=== PATIENT | male | born 1990 | race Caucasian/White ===

== ENCOUNTER → 2022-04-20 | Outpatient (REF) ==
--- NOTE | 2022-04-20 15:02 | Diagnostic Imaging Report ---
EXAMINATION: Right shoulder MRI without contrast, 04/20/2022. TECHNIQUE: Multiplanar, multisequence non contrast-enhanced MRI of the right upper extremity was accomplished. INDICATION: Pulling injury. Occurred in October 2021. Shoulder pain since. FINDINGS: The supraspinatus and infraspinatus tendons appear intact. The subscapularis tendon is intact. The long head of the biceps tendon is intact and lies within the bicipital groove. The biceps tendon anchor is intact. The labrum is grossly intact on this noncontrast examination. There is minimal narrowing and spurring at the acromioclavicular joint. There is minimal underlying fluid in the subdeltoid-subacromial bursa. Muscle volume is preserved. IMPRESSION: 1. Minimal fluid in the subdeltoid-subacromial bursa suggesting mild changes of bursitis. 2. Rotator cuff and labrum as well as biceps tendon intact. Dictated by: Dictated on workstation # [id number]
== END | disposition home or self-care (01) ==
LOC: OCC 13:08
PROVIDERS: ATTEND Family Medicine
DX: Z01.818 Encounter for other preprocedural examination (principal)
CPT/HCPCS: 73221

== ENCOUNTER → 2022-05-16 | Outpatient (CLI) | payer OTHER ==
--- NOTE | 2022-05-16 10:59 | Diagnostic Imaging Report ---
INDICATION: Shoulder pain EXAMINATION: Right shoulder 05/16/2022 FINDINGS: 3 views of the shoulder. FINDINGS: There is no evidence for an acute fracture or dislocation. The joint spaces are well maintained. There is no significant soft tissue swelling. IMPRESSION: No acute process. Dictated by: Dictated on workstation # [id number]
== END ==
LOC: ORTHO 09:52
PROVIDERS: ATTEND Orthopaedic Surgery
DX: M75.51 Bursitis of right shoulder (principal)
CPT/HCPCS: 73030; G0463; 99203

== ENCOUNTER 2022-06-08 09:40 | Outpatient (RCR) | payer OTHER | END 2022-06-11 | disposition home or self-care (01) | PROVIDERS: ATTEND Orthopaedic Surgery | DX: M75.51 Bursitis of right shoulder (principal) ==

== ENCOUNTER → 2022-06-16 | Outpatient (CLI) | payer OTHER | LOC: ORTHO 11:08 | PROVIDERS: ATTEND Orthopaedic Surgery | DX: M75.51 Bursitis of right shoulder (principal) ==

== ENCOUNTER 2022-07-11 08:33 | Outpatient (RCR) | payer OTHER | END 2022-07-12 | disposition home or self-care (01) | PROVIDERS: ATTEND Orthopaedic Surgery | DX: M75.51 Bursitis of right shoulder (principal) ==

== ENCOUNTER → 2022-07-18 | Outpatient (CLI) | payer OTHER | LOC: ORTHO 17:17 | PROVIDERS: ATTEND Orthopaedic Surgery | DX: M75.51 Bursitis of right shoulder (principal) | CPT/HCPCS: 99213 ==

== ENCOUNTER 2022-08-01 08:47 | Outpatient (RCR) | payer OTHER | END 2022-08-11 | disposition home or self-care (01) | PROVIDERS: ATTEND Orthopaedic Surgery | DX: M75.51 Bursitis of right shoulder (principal) ==

== ENCOUNTER → 2022-08-15 | Outpatient (CLI) | payer OTHER | LOC: ORTHO 09:45 | PROVIDERS: ATTEND Orthopaedic Surgery | DX: M75.51 Bursitis of right shoulder (principal) | CPT/HCPCS: 20610; G0463 ==

== ENCOUNTER → 2022-09-14 | Outpatient (CLI) | payer OTHER | LOC: ORTHO 09:35 | PROVIDERS: ATTEND Orthopaedic Surgery | DX: M75.51 Bursitis of right shoulder (principal) | CPT/HCPCS: 99213 ==

== ENCOUNTER → 2022-10-26 | Outpatient (CLI) | payer OTHER | LOC: ORTHO 09:45 | PROVIDERS: ATTEND Orthopaedic Surgery | DX: M75.51 Bursitis of right shoulder (principal) | CPT/HCPCS: 99213 ==